=== PATIENT | male | born 1960 | race Caucasian/White ===

== ENCOUNTER 2023-05-27 10:29 | Emergency (ER) | payer OTHER, SELFPAY ==
[2023-05-27 10:30] VITALS: BP 165/87; PULSE 91; RESP 18; TEMP 36.4; O2SAT 98; BMI 33.7
--- NOTE | 2023-05-27 10:45 | US_ITS ---
INDICATION: pain/swelling left EXAMINATION: Ultrasound US Scrotum (Contents) TECHNIQUE: Realtime ultrasound of the testicles was performed with grayscale, Color Doppler and spectral Doppler analysis. COMPARISON: No relevant prior comparison study available FINDINGS: RIGHT: TESTIS: 3.4 x 3.9 x 2.7 cm. Normal in size and echotexture, without focal lesion. COLOR DOPPLER: Normal arterial flow present in the testicle with monophasic waveforms. EPIDIDYMIS: Normal in size and echotexture. Epididymal head cyst measures 0.7 cm.. [Normal color Doppler flow pattern in the epididymis. HYDROCELE: Moderate VARICOCELE: None. LEFT: TESTIS: 4.5 x 3.5 x 3.5 cm. Normal in size. Mildly heterogeneous echotexture, without focal lesion. COLOR DOPPLER: Mildly increased vascularity present in the testicle with monophasic waveforms. EPIDIDYMIS: Mildly prominent in size with increased vascularity. Epididymal head cyst measures up to 1 cm. [Increased color Doppler flow pattern in the epididymis. HYDROCELE: Moderate septated hydrocele present. VARICOCELE: None. US/Testicular with Arterial Flow IMPRESSION: Moderate bilateral hydroceles, septated on the left. No testicular mass. Mild heterogeneity and increased vascularity of the left testicle and epididymis suggestive of epididymoorchitis. Electronically Signed: Mitchell Gardiner MD at 12:36 EDT ,
--- NOTE | 2023-05-27 10:49 | EX.ED.GUMALE ---
HPI History of Present Illness Chief Complaint: Male Pain/Injury Informant: patient Pain Onset: Days (3) Context: Gradual Onset Timing: Continuous Current Severity: Mild Maximum Severity: Moderate Worsened by: nothing Relieved by: ibuprofen Narrative Narrative: 62-year-old male states this past week he was really constipated, and as a result of taking stool softeners and it not helping he was bearing down a lot to get stool out. Several days ago he noticed that his left scrotum started becoming swollen and painful, and he thought maybe he had a hernia. Today it is persistent. It is better when he takes ibuprofen. He denies any abdominal pain, nausea, vomiting, or discomfort elsewhere other than the left scrotum. No urinary symptoms. History of vasectomy. No history of any abdominal surgeries. He states he took magnesium citrate a day or 2 ago, and he had a good bowel movement yesterday and that is better he continues to have bowel movements despite the pain in his scrotum. PFSH PFSH Home Medications doxycycline monohydrate 100 mg capsule 100 mg PO BID #20 CAPSULES 05/27/23 [Rx Last Taken Unknown] Surgical History (Updated 05/27/23 @ 10:[address] Luis Miles MD) H/O vasectomy Social History Smoking Status: Never smoker ROS ROS ED Constitutional Constitutional ED: Denies chills or fever(s) Eyes Eyes: Denies change in vision or diplopia ENT ENT ED: Denies rhinorrhea or sore throat Cardiovascular Cardiovascular: Denies chest pain or palpitations Respiratory/Chest Respiratory/Chest: Denies cough or dyspnea Gastrointestinal Gastrointestinal: Denies abdominal pain, diarrhea, nausea or vomiting Genitourinary Genitourinary ED: Reports as per HPI, scrotal pain and scrotal swelling; Denies dysuria, flank pain or hematuria Musculoskeletal Musculoskeletal: Denies back pain or neck pain Integumentary Denies abscess or rash Neurologic Neurologic: Denies headache(s), paresthesias or weakness Psychiatric Psychiatric: Denies anxiety or suicidal thoughts EXAM Physical Exam Const Vital Signs: 05/27/23 10:30 Temperature 97.6 F L Temperature Source Temporal Pulse Rate 91 Respiratory Rate 18 Blood Pressure 165/87 H Blood Pressure Mean 113 Pulse Ox 98 Oxygen Delivery Method Room Air Positive well nourished and well developed General Appearance ED: well developed and NAD HEENT Reports moist mucous membranes normocephalic and atraumatic Eyes PERRL and EOMs intact bilaterally Neck full ROM and supple Resp normal respiratory effort and clear to auscultation bilaterally Cardio regular rate, regular rhythm and no murmurs GI non-tender and non-distended Auscultation: normoactive bowel sounds Palpation: soft no CVA tenderness Narrative: Examined while standing. No definite palpable hernias, no tenderness in inguinal canal, the left hemiscrotum is erythematous, edematous, and diffusely tender. Not able to palpate any extratesticular masses. Intact cremasterics. Right hemiscrotum and testicle benign and nontender. Back/Spine no CVA tenderness General Back: other FROM Extremity normal to inspection General Extremety ED: Negative for edema, pulses abnormal or tenderness General Extremity: Negative for edema or pulses abnormal Neuro oriented x3, CN's II-XII intact bilaterally and no sensory deficits noted Sensorium / Orientation: awake and alert Motor Exam: strength 5/5 throughout Skin no rashes or lesions noted and no wounds MDM MDM MDM Narrative Medical decision making narrative: Clinically looks less like hernia although the history supports the likelihood of that, so I thought ultrasound would be a better test to look at the testicle and epididymis proper, I reviewed the images and the report and I agree with it, basically showing signs of epididymoorchitis. No signs of a hernia. Also septated hydrocele noted as well. Will send urine culture and GC/chlamydia, lower suspicion for the latter, and refer him to urology, placed him on a 10-day course of doxycycline. I think he can safely be treated as an outpatient. Lab Data Attestation: I reviewed the patient's lab results. Labs: Laboratory Results - last 24 hr 05/27/23 11:24 Urine Color Yellow Urine Clarity Clear Urine pH 5.0 Ur Specific [place] 1.020 Urine Protein 30 H Urine Glucose (UA) Normal Urine Ketones 5 H Urine Occult Blood 25 H Urine Nitrite Negative Urine Bilirubin 1 H Urine Urobilinogen 1 H Ur Leukocyte Esterase 25 H Urine RBC 0-5 SEEN Urine WBC 0-5 SEEN Ur Squamous Epith Cells 0-5 SEEN Urine Bacteria RARE Urine Mucus 0 SEEN Radiography Diagnostic Testing: Clinical Impression(s) from Imaging Studies Testicular Ultrasound 05/27/23 10:45 IMPRESSION: Moderate bilateral hydroceles, septated on the left. No testicular mass. Mild heterogeneity and increased vascularity of the left testicle and epididymis suggestive of epididymoorchitis. Electronically Signed: Mitchell Gardiner MD at 12:36 EDT , Discharge Plan Triage Chief Complaint: Male Pain/Injury ED Provider: Luis Miles Dx/Rx/DC Orders Clinical Impression: Acute epididymo-orchitis Instructions: Treating Epididymitis and Orchitis Prescriptions: New doxycycline monohydrate 100 mg capsule 100 mg PO BID Qty: 20 0RF Primary Care Provider: Care Physician,No Primary Referrals: Rd Kent MD [Med Staff - Active Staff] - 1 Week if not improving Town Doctor,Out of [Non-Staff] - Disposition Disposition: Home, Self Care
[2023-05-27 11:28] LABS: Mucous, Urine 0 SEEN /hpf (<or=2+)
[2023-05-27 11:33] LABS: Color, Urine Yellow (Yellow); Glucose, Dipstick Normal (Normal); Ketone-Dipstick 5 mg/dl (Negative); Leukocyte Esterase-Dipstick 25 /ul (Negative); Nitrite-Dipstick Negative (Negative); Occult Blood-Urine 25 /ul (Negative); Protein-Dipstick 30 mg/dl (Negative); Urine Clarity Clear (Clear); Urine Urobilinogen 1 mg/dl (Normal)
[2023-05-27 11:37] LABS: Urine Bilirubin Dipstick 1 mg/dL (Negative)
[2023-05-27 11:43] LABS: Bacteria RARE /hpf (None Seen); Red Blood Cells-Urine 0-5 SEEN /hpf (0-5); Squamous Epithelial Cells - UA 0-5 SEEN /hpf (0-5); White Blood Cells 0-5 SEEN /hpf (0-5)
[2023-05-27] MEDS: Doxycycline 100 MG CAPSULE PO (13:25)
[2023-05-27 13:28] VITALS: BP 125/63; PULSE 70; RESP 15; O2SAT 96
== END 2023-05-27 13:29 | disposition home or self-care (01) ==
PROVIDERS: Emergency Provider Emergency Medicine; Visit Provider Emergency Medicine
DX: N45.3 Epididymo-orchitis (principal)
CPT/HCPCS: 76870; 81001; 87086; 87088; 87491; 87591; 93976; 99282